=== PATIENT | male | born 1935 | race Caucasian/White ===

== ENCOUNTER 2018-10-09 20:14 | Emergency (ER) | payer MEDICARE ==
[~2018-10-09] VITALS: Ht 177.8 cm; Wt 79.4 kg
[2018-10-09 20:30] VITALS: BP 156/82
[2018-10-09] MEDS ORDERED: TETANUS-DIPTH-ACEL PERTUSSIS 0.5ML SYRG IM ONE (20:45)
[2018-10-09] MEDS ORDERED: ACETAMINOPHEN 325 MG TAB PO ONE (21:45)
== END 2018-10-10 02:15 | disposition home or self-care (01) ==
LOC: EDBD 20:14 → ER 20:20
DX: S00.83XA Contusion of other part of head, initial encounter (principal); S60.221A Contusion of right hand, initial encounter; I10 Essential (primary) hypertension; Y04.2XXA Assault by strike against or bumped into by another person, initial encounter; Y93.89 Activity, other specified; Y92.89 Other specified places as the place of occurrence of the external cause; Y99.8 Other external cause status
CPT/HCPCS: 70486; 73130; 93005